=== PATIENT | female | born 1950 | race Caucasian/White ===

== ENCOUNTER 2021-05-04 14:25 | Inpatient (IN) | payer MEDICARE ==
[~2021-05-04] VITALS: Ht 162.6 cm; Wt 117.5 kg
[~2021-05-04 14:25] MED LIST: ASPIRIN E.C. 8181 MG PO; MULTIPLE VITAMI1 CAP PO
[2021-05-04] MEDS ORDERED: CARTIA XT180 MG PO (16:05)
[2021-05-04] MEDS ORDERED: MULTAQ400 MG PO (16:06)
[2021-05-04] MEDS ORDERED: ELIQUIS 5MG PO (16:06)
[2021-05-04] MEDS ORDERED: TYLENOL 500MG500 MG PO (16:59)
[2021-05-04 17:50] LABS: TSH w REFLEX 0.774 uIU/mL (0.350-4.940)
[2021-05-04 17:52] LABS: TROPONIN-I < 0.010 ng/mL (0.00-0.033)
[2021-05-04 18:04] VITALS: BP 115/53; PULSE 62; TEMP 98.1
--- NOTE | 2021-05-04 19:00 | NUR ---
Pt arrived into room 312 at this time. She is A/O x4. Her breathing is even and unlabored on RA. Pt denies any CP or palpitations. Tele placed on patient and patient in NSR bradycardia, Dr. Blackwell notified. Orders to start PO Cardizem and dc drip an hour later given and completed. Pt denies N/V. Reports some R sided pain, warm pack provided. IV to R hand. POC discussed with patient who verbalizes understanding. No further needs at this time. Call light within reach.
[2021-05-04 19:59] VITALS: BP 101/76; PULSE 67; TEMP 98.1
--- NOTE | 2021-05-04 22:00 | NUR ---
Patient is resting in bed, alert and oriented x 4, HR in the higher 50's. Rest VS WNL. Reports that she had intermitent pain in the right lower quadrant, but after having BM now pain is not as evident. Tele in place NSR. Assessment completed, meds provided. No further needs at this time. Call light within reach.
[2021-05-04 22:55] VITALS: BP 120/62; PULSE 53; TEMP 97.9
[2021-05-04 23:39] VITALS: BP 106/56; PULSE 56; TEMP 98
[2021-05-05 04:18] VITALS: BP 132/67; PULSE 64; TEMP 97.8
--- NOTE | 2021-05-05 06:48 | NUR ---
Patient has been stable along the night. She complained about pain in the abdomen related with gasses. Pt did not have changes reported by tele monitor. Shift report will be given to dayshift nurse.
[2021-05-05 07:00] LABS: BASO # 0.1 K/mm3 (0.0-0.2); BASO % 1.4 % (0.0-2.0); EOS # 0.3 K/mm3 (0.0-0.7); EOS % 4.9 % (0-4.0); GRAN # 3.1 K/mm3 (1.4-6.5); GRAN % 53.7 % (42.2-75.2); HEMATOCRIT 38.2 % (37.0-47.0); HEMOGLOBIN 12.4 g/dl (12.5-16.0); LYMPH # 1.5 K/mm3 (1.2-3.4); LYMPH % 26.6 % (20.0-51.0); MEAN CELL VOLUME 85 fl (80.0-100.0); MEAN CORPUSCULAR HEMOGLOBIN 27 pg (27.0-31.0); MEAN CORPUSCULAR HGB CONC 33 g/dl (33.0-37.0); MEAN PLATELET VOLUME 12.4 fl (7.4-10.4); MONO # 0.8 K/mm3 (0.1-0.6); MONO % 13.1 % (1.7-9.3); PLATELET COUNT 166 K/mm3 (130-400); RED BLOOD COUNT 4.52 M/mm3 (4.10-5.30); REDCELL DISTRIBUTION WIDTH-CV 14.7 % (11.5-14.5)
--- NOTE | 2021-05-05 07:00 | NUR ---
Report received from KATLYN Kendall. PT in bed resting with eyes closed, will continue to monitor.
[2021-05-05 07:10] LABS: CALCIUM 9.9 mg/dL (8.4-10.2); CHOLESTEROL RISK RATIO 1.8; CREATININE, serum 0.91 mg/dL (0.57-1.11); POTASSIUM 4.2 mmol/L (3.5-4.5)
[2021-05-05 07:47] VITALS: BP 120/68; PULSE 55; TEMP 97.7
--- NOTE | 2021-05-05 09:11 | NUR ---
Assessment charted. Pt in chair at side of bed resting. Denies pain at this time. Discussed home bowel regimen and pt states she gives herself an enema almost daily for constipation in RLQ, discussed trying something else like miralax, will discuss with hospitalist team. NPO for now, Tyshawn to round, holding off on eliquis until they round, will continue to monitor.
[2021-05-05 12:18] VITALS: BP 107/60; PULSE 51; TEMP 97.9
--- NOTE | 2021-05-05 14:37 | NUR ---
Quality Control Head met with patient to discuss discharge plan. Patient lives in [place] with her , Lorenzo (ph#[phone]) and goes to [facility] for primary care. Patient reports she also obtains medications from [facility]. Patient does not use any DME and is independent with ADLS. Patient states she does not have Advance Directives and is not interested in establishing DPOA-HC at this time, but will talk about this with her . Patient states she plans to return home upon discharge. Patient advised that she has been having great difficulty with insurance the last couple years. Patient states she was dropped from Medicare in 2019 with no notice and was recently "dropped" from [employer]. Patient states she has no insurance coverage at this time. SW consulted Financial Counseling. Discharge Plan: Home
[2021-05-05 17:01] VITALS: BP 91/57; PULSE 59; TEMP 98.4
--- NOTE | 2021-05-05 19:07 | NUR ---
Pt has done well over shift. Understands plan of be NPO p midngiht to conclude stress test tomorrow. Denies pain. Will start Miralax. Will give report to kathya iglesias who will resume care.
--- NOTE | 2021-05-05 20:30 | NUR ---
Patient is waling in the room, alert and oriented x 4, VSS, denies chest pain. Tele in place, independent. Assessment completed, meds provided. No further needs at this time. Call light within reach.
[2021-05-05 20:37] VITALS: BP 118/60; PULSE 56; TEMP 97.7
[2021-05-05 21:59] VITALS: BP 109/65; PULSE 58; TEMP 97.9
[2021-05-06] VITALS (11 sets, daily range): BP systolic 102–121; BP diastolic 52–76; PULSE 51–78; TEMP 97.4–98
--- NOTE | 2021-05-06 06:34 | NUR ---
Patient has had a calm night, she just had a shower. Has been NPO all night. Denies chest pain. Shift report will be given to day shift RN.
[2021-05-06 06:58] LABS: BASO # 0.1 K/mm3 (0.0-0.2); BASO % 1.2 % (0.0-2.0); EOS # 0.3 K/mm3 (0.0-0.7); EOS % 4.9 % (0-4.0); GRAN # 3.5 K/mm3 (1.4-6.5); GRAN % 52.6 % (42.2-75.2); HEMATOCRIT 41.9 % (37.0-47.0); HEMOGLOBIN 13.4 g/dl (12.5-16.0); LYMPH # 1.9 K/mm3 (1.2-3.4); LYMPH % 29.2 % (20.0-51.0); MEAN CELL VOLUME 85 fl (80.0-100.0); MEAN CORPUSCULAR HEMOGLOBIN 27 pg (27.0-31.0); MEAN CORPUSCULAR HGB CONC 32 g/dl (33.0-37.0); MEAN PLATELET VOLUME 12.9 fl (7.4-10.4); MONO # 0.8 K/mm3 (0.1-0.6); MONO % 11.8 % (1.7-9.3); PLATELET COUNT 204 K/mm3 (130-400); RED BLOOD COUNT 4.91 M/mm3 (4.10-5.30); REDCELL DISTRIBUTION WIDTH-CV 14.7 % (11.5-14.5)
[2021-05-06 07:04] LABS: CALCIUM 10.5 mg/dL (8.4-10.2); CREATININE, serum 0.89 mg/dL (0.57-1.11); POTASSIUM 4.4 mmol/L (3.5-4.5)
--- NOTE | 2021-05-06 07:33 | NUR ---
ASSESSMENT COMPLETE. PT COOPERATIVE WITH CARES. PT SITTING IN HER RECLINER THIS MORNING WORKING ON HER TABLET PC. PT STATES SHE HAS SOME MILD DISCOMFORT ON HER LOWER RIGHT SIDE, BUT DENIES PALPITATIONS OR DIZZINESS. PT COMPLAINED OF DRY MOUTH. A SMALL AMOUNT OF ICE CHIPS GRANTED, DUE TO PT'S NPO STATUS. PT HAS YESENIA SCHEDULED THIS AM. PT STATES SHE HAS NO OTHER NEEDS AT THIS TIME. CALL LIGHT WITHIN REACH.
--- NOTE | 2021-05-06 11:46 | NUR ---
First visit from the assistant football coach. No needs right now.
--- NOTE | 2021-05-06 13:36 | NUR ---
Baffle Installer collaborated with Jaci, Financial Counselor who advised she found that patient acutally does have Medicare coverage. Jaci is on the floor to meet with patient.
--- NOTE | 2021-05-06 18:01 | NUR ---
PT RESTING IN HER RECLINER WORKING ON HER TABLET PC. PT HAD A LEXISCAN THIS MORNING. PT STATED SHE HAD NO PAIN, PALPITATIONS OR DIZZINESS UPON RETURN. PT STATED SHE WAS HUNGRY, BUT HAD TO WAIT UNTIL PHYSICIAN READ SCAN BEFORE EATING. PT WAS ABLE TO EAT LUNCH, THEN DINNER, BUT COMPLAINED THE FOOD WAS BLEND WITHOUT SALT. PT IS ON AN CITIZ[place] [employer] DIET. THIS EVENING, PT COMPLAINED OF A MILD HEADACHE, SHE SAYS IS FROM [place]EINE WITHDRAWAL. PT GIVEN TYLENOL. PT WALKED UP AND BACK DOWN THE BROUSSARD THIS EVENING, WITH NO ISSUES. PT STATES SHE HAS NO OTHER NEEDS AT THIS TIME. CALL LIGHT WITHIN REACH.
--- NOTE | 2021-05-06 22:20 | NUR ---
Patient is resting in bed, alert and oriented x 4, VSS, denies chest pain, nausea or vomiting. Tele in place. Assessment completed, medications provided. No further needs at this time. Call light within reach.
[2021-05-07 03:35] VITALS: BP 123/70; PULSE 56; TEMP 97.5
--- NOTE | 2021-05-07 05:37 | NUR ---
Patient has had a good night, no major issues. NSR, HR in 50's. Denies chest pain, palpitations or SOB. Shift report will be given to day RN.
--- NOTE | 2021-05-07 08:00 | NUR ---
PT AOX4, DENIES PAIN, EAGER FOR DISCHARGE, CALL LIGHT WITHIN REACH, FRESH ICE WATER BROUGHT IN, NO OTHER NEEDS
[2021-05-07 08:12] LABS: CREATININE, serum 0.79 mg/dL (0.57-1.11); POTASSIUM 4.2 mmol/L (3.5-4.5)
[2021-05-07 08:33] LABS: BASO # 0.1 K/mm3 (0.0-0.2); BASO % 1.6 % (0.0-2.0); EOS # 0.3 K/mm3 (0.0-0.7); EOS % 5.3 % (0-4.0); GRAN # 2.3 K/mm3 (1.4-6.5); GRAN % 46.3 % (42.2-75.2); HEMATOCRIT 40.8 % (37.0-47.0); HEMOGLOBIN 13.2 g/dl (12.5-16.0); LYMPH # 1.7 K/mm3 (1.2-3.4); MEAN CELL VOLUME 84 fl (80.0-100.0); MEAN CORPUSCULAR HEMOGLOBIN 27 pg (27.0-31.0); MEAN CORPUSCULAR HGB CONC 32 g/dl (33.0-37.0); MEAN PLATELET VOLUME 12.1 fl (7.4-10.4); MONO # 0.6 K/mm3 (0.1-0.6); MONO % 12.6 % (1.7-9.3); PLATELET COUNT 179 K/mm3 (130-400); RED BLOOD COUNT 4.87 M/mm3 (4.10-5.30); REDCELL DISTRIBUTION WIDTH-CV 14.7 % (11.5-14.5)
[2021-05-07 09:09] VITALS: BP 130/69; PULSE 80; TEMP 97.9
[2021-05-07] MEDS ORDERED: MIRALAX PA17 GM/Dose PO (10:52)
[2021-05-07] MEDS ORDERED: BETAPACE 120MG120 MG PO (10:52)
[2021-05-07] MEDS ORDERED: SENOKOT S 50 MG1 TAB PO (10:53)
--- NOTE | 2021-05-07 11:40 | NUR ---
[employer] Presser followed up with patient on discharge plan as she is ready to be discharged home today. Patient is eager to get home and feels good about it. Patient is not interested in home health services and requested a home exercise program. SW contacted PT who will be up to meet with patient. SHAVON updated Hospitalist. Discharge Plan: Home
[2021-05-07 11:51] VITALS: BP 128/65; PULSE 63; TEMP 98
--- NOTE | 2021-05-07 12:05 | NUR ---
PT DISCHARGED HOME. I WENT OVER PAPERWORK WITH PT AND ANSWERED ANY QUESTIONS SHE HAD. IV REMOVED. IV CATHETER INTACT. TELE REMOVED. PT DENIES PAIN, PALPITATIONS, SOB OR DIZZINESS. PT STATES SHE HAS ONE OTHER NEEDS AT THIS TIME. PT ESCORTED TO HER VEHICLE BY MYSELF VIA WHEELCHAIR. PT'S DROVE HER HOME.
== END 2021-05-07 12:00 | disposition home or self-care (01) | DRG 309 ==
LOC: MEDICAL 16:00
PROVIDERS: Physician Assistant; Student in an Organized Health Care Education/Training Program; ADMIT Internal Medicine
DX: I48.91 Unspecified atrial fibrillation (principal); Z68.41 Body mass index [BMI] 40.0-44.9, adult; K59.04 Chronic idiopathic constipation; K21.9 Gastro-esophageal reflux disease without esophagitis; E66.01 Morbid (severe) obesity due to excess calories; G47.33 Obstructive sleep apnea (adult) (pediatric); G89.29 Other chronic pain; R10.9 Unspecified abdominal pain; I27.20 Pulmonary hypertension, unspecified; R07.9 Chest pain, unspecified; Z79.82 Long term (current) use of aspirin
CPT/HCPCS: OP; 99232-AI; 99233-AI; 99239; A9500; G0378; J2785